=== PATIENT | female | born 1980 | race Caucasian/White ===

== ENCOUNTER 2021-07-12 03:03 | Inpatient (IN) ==
[2021-07-12] MEDS ORDERED: Isovue-370 500 ML BOTTLE IVP ONE (03:21)
[2021-07-12 03:49] LABS: Basophils % 0.4 %; Eosinophils # 0.2 K/mcL (0.0-0.6); Eosinophils % 2.3 %; Hematocrit 39.5 % (35.3-44.9); Hemoglobin 13.7 g/dL (11.5-15.4); Immature Granulocytes % 0.3 % (0-4); Lymphocytes # 2.9 K/mcL (0.6-4.6); Lymphocytes % 37.4 %; Mean Corpuscular HGB Conc 34.7 g/dL (31.6-35.5); Mean Corpuscular Hemoglobin 35.5 pg (28.0-33.3); Mean Corpuscular Volume 102.3 fL (83.0-100.0); Mean Platelet Volume 10.2 fL (9.4-12.4); Monocytes # 0.3 K/mcL (0.0-1.3); Monocytes % 4.3 %; Neutrophils # 4.3 K/mcL (1.6-8.9); Platelet Count 233 K/mcL (140-400); Red Blood Count 3.86 M/mcL (3.82-4.97); Red Cell Distribution Width 12.6 % (11.5-14.5); Segmented Neutrophils % 55.3 %; White Blood Count 7.7 K/mcL (4.3-11.1)
[2021-07-12 04:10] LABS: Albumin 4.4 g/dL (3.5-5.7); Albumin/Globulin Ratio 1.5 (1.1-2.2); Bilirubin,Direct 0.1 mg/dL (0.0-0.2); Bilirubin,Indirect 0.8 mg/dL (0.0-1.0); Bilirubin,Total 0.9 mg/dL (0.3-1.0); Globulin 2.9 g/dL (2.4-3.5); Total Protein 7.3 g/dL (6.4-8.9)
[2021-07-12 04:11] LABS: BUN/Creatinine Ratio 9 (6-26); Blood Urea Nitrogen 9 mg/dL (6-20); Calcium 8.8 mg/dL (8.6-10.3); Carbon Dioxide 19 mEq/L (23-29); Chloride 105 mEq/L (98-107); Glucose 120 mg/dL (70-105); Osmolality,Calculated 282 (280-300); Potassium 3.3 mEq/L (3.5-5.1); Sodium 136 mEq/L (136-145); Troponin I 0.03 ng/mL (< 0.04); eGFR For African Americans > 60 (> 60); eGFR For Non-African Americans > 60 (> 60)
[2021-07-12] MEDS ORDERED: Aspirin 81 MG TAB.CHEW PO ONE (04:58)
[2021-07-12] MEDS ORDERED: Nitroglycerin 0.4 MG TAB.SUBL SL ONE (04:59)
[2021-07-12] MEDS ORDERED: Ondansetron 4 MG/2 ML VIAL IVP ONE (05:06)
[2021-07-12] MEDS ORDERED: *HR* Ticagrelor 90 MG TABLET PO ONE (05:10)
[2021-07-12] MEDS ORDERED: *HR* Heparin 5,000 UNIT/ML VIAL IVP ONE (05:10)
[2021-07-12] MEDS ORDERED: *HR* Heparin 5,000 UNIT/ML VIAL IVP PRN ×2 (05:10)
[2021-07-12] MEDS ORDERED: Heparin 25,000UNIT/250ML 1/2NS 25,000 UNIT/250 ML IV.SOLN IVC SCH (05:15)
[2021-07-12] MEDS ORDERED: *HR* FentaNYL (PF) 100 MCG/2 ML VIAL IVP ONE (05:26)
[2021-07-12] MEDS ORDERED: 0.9 % Sodium Chloride 2,000 ML ONE (05:39)
[2021-07-12] MEDS ORDERED: Nitroglycerin 1,000 MCG/5 ML VIAL IV ONE ×2 (05:39→06:37)
[2021-07-12] MEDS ORDERED: *HR* Heparin 10,000 UNIT/10 ML VIAL ONE (05:39)
[2021-07-12] MEDS ORDERED: Heparin 1,000 UNITS/500 mL 500 ML ONE ×2 (05:39→07:14)
[2021-07-12] MEDS ORDERED: ISOVUE-370 200 ML INFUS..BTL ONE ×2 (05:39→06:31)
[2021-07-12] MEDS ORDERED: *HR* Midazolam HCl 2 MG/2 ML VIAL ONE ×2 (05:47→07:16)
[2021-07-12] MEDS ORDERED: *HR* FentaNYL (PF) 100 MCG/2 ML VIAL ONE (05:48)
[2021-07-12] MEDS ORDERED: 0.9 % Sodium Chloride 1,000 ML ONE ×3 (05:50→13:03)
[2021-07-12 05:57] LABS: Prothrombin Time 11.9 Seconds (9.4-12.1)
[2021-07-12 05:58] LABS: Heparin anti-factor XA UFH < 0.04 IU/mL (0.30-0.70)
[2021-07-12 06:00] LABS: Activated Partial Thrombo Time 27.7 Seconds (26.0-36.0)
[2021-07-12 06:04] LABS: Basophils % 0.2 %; Eosinophils # 0.1 K/mcL (0.0-0.6); Eosinophils % 0.8 %; Hematocrit 36.2 % (35.3-44.9); Hemoglobin 12.4 g/dL (11.5-15.4); Immature Granulocytes % 0.4 % (0-4); Lymphocytes # 1.7 K/mcL (0.6-4.6); Lymphocytes % 20.8 %; Mean Corpuscular HGB Conc 34.3 g/dL (31.6-35.5); Mean Corpuscular Hemoglobin 35.3 pg (28.0-33.3); Mean Corpuscular Volume 103.1 fL (83.0-100.0); Mean Platelet Volume 10.2 fL (9.4-12.4); Monocytes # 0.4 K/mcL (0.0-1.3); Monocytes % 4.2 %; Neutrophils # 6.1 K/mcL (1.6-8.9); Platelet Count 201 K/mcL (140-400); Red Blood Count 3.51 M/mcL (3.82-4.97); Red Cell Distribution Width 12.5 % (11.5-14.5); Segmented Neutrophils % 73.6 %; White Blood Count 8.3 K/mcL (4.3-11.1)
[2021-07-12] MEDS ORDERED: *HR* Atropine Sulfate 1 MG/10 ML SYRINGE ONE (06:15)
[2021-07-12] MEDS ORDERED: Ondansetron 4 MG/2 ML VIAL ONE ×2 (06:49→08:00)
[2021-07-12 06:54] LABS: BUN/Creatinine Ratio 11 (6-26); Blood Urea Nitrogen 9 mg/dL (6-20); Calcium 8.6 mg/dL (8.6-10.3); Carbon Dioxide 20 mEq/L (23-29); Chloride 103 mEq/L (98-107); Glucose 128 mg/dL (70-105); Osmolality,Calculated 280 (280-300); Potassium 3.6 mEq/L (3.5-5.1); Sodium 135 mEq/L (136-145); eGFR For African Americans > 60 (> 60); eGFR For Non-African Americans > 60 (> 60)
[2021-07-12] MEDS ORDERED: Perflutren Lipid Microsphere 1.3 ML in 0.9 % Sodium Chloride 8.7 ML IVP PRN (07:45)
[2021-07-12] MEDS ORDERED: Acetaminophen 325 MG TABLET PO ONE (09:15)
[2021-07-12 10:29] LABS: Adenovirus Not Detected (Not Detect); Bordetella Pertussis Not Detected (Not Detect); Chlamydophila pneumoniae Not Detected (Not Detect); Coronavirus 229E Not Detected (Not Detect); Coronavirus HKU1 Not Detected (Not Detect); Coronavirus NL63 Not Detected (Not Detect); Coronavirus OC43 Not Detected (Not Detect); Human Metapneumovirus Not Detected (Not Detect); Human Rhinovirus/Enterovirus Not Detected (Not Detect); Influenza A Subtype 2009 H1 Not Detected (Not Detect); Influenza B Not Detected (Not Detect); Mycoplasma pneumoniae Not Detected (Not Detect); Parainfluenza Virus 1 Not Detected (Not Detect); Parainfluenza Virus 2 Not Detected (Not Detect); Parainfluenza Virus 3 Not Detected (Not Detect); Parainfluenza Virus 4 Not Detected (Not Detect); Respiratory Syncytial Virus Not Detected (Not Detect); SARS-CoV-2 Not Detected (Not Detect)
[2021-07-12] MEDS: 0.9 % Sodium Chloride 1,000 ML IVC SCH ×2 (16:31→18:12)
[2021-07-12] MEDS: *HR* Heparin 5,000 UNIT/ML VIAL SQ SCH (17:40)
[2021-07-12] MEDS ORDERED: *HR* Metoprolol 5 MG/5 ML VIAL IVP ONE (18:03)
[2021-07-12] MEDS ORDERED: Morphine Sulfate 2 MG/ML SYRINGE IVP PRN (18:07)
[2021-07-12] MEDS: *HR* Ticagrelor 90 MG TABLET PO SCH (20:13)
[2021-07-13] MEDS: Acetaminophen 325 MG TABLET PO PRN ×2 (01:27→07:32)
[2021-07-13] MEDS: 0.9 % Sodium Chloride 1,000 ML IVC SCH (02:38)
[2021-07-13 03:10] LABS: Basophils % 0.1 %; Eosinophils # 0.1 K/mcL (0.0-0.6); Hematocrit 33.5 % (35.3-44.9); Hemoglobin 11.2 g/dL (11.5-15.4); Immature Granulocytes % 0.3 % (0-4); Lymphocytes # 1.7 K/mcL (0.6-4.6); Lymphocytes % 24.9 %; Mean Corpuscular HGB Conc 33.4 g/dL (31.6-35.5); Mean Corpuscular Hemoglobin 35.3 pg (28.0-33.3); Mean Corpuscular Volume 105.7 fL (83.0-100.0); Mean Platelet Volume 10.2 fL (9.4-12.4); Monocytes # 0.3 K/mcL (0.0-1.3); Monocytes % 4.6 %; Neutrophils # 4.8 K/mcL (1.6-8.9); Platelet Count 177 K/mcL (140-400); Red Blood Count 3.17 M/mcL (3.82-4.97); Red Cell Distribution Width 12.7 % (11.5-14.5); Segmented Neutrophils % 69.1 %; White Blood Count 6.9 K/mcL (4.3-11.1)
[2021-07-13 03:37] LABS: BUN/Creatinine Ratio 6 (6-26); Blood Urea Nitrogen 5 mg/dL (6-20); Calcium 8.2 mg/dL (8.6-10.3); Carbon Dioxide 19 mEq/L (23-29); Chloride 110 mEq/L (98-107); Glucose 114 mg/dL (70-105); Osmolality,Calculated 282 (280-300); Potassium 3.5 mEq/L (3.5-5.1); Sodium 137 mEq/L (136-145); eGFR For African Americans > 60 (> 60); eGFR For Non-African Americans > 60 (> 60)
[2021-07-13 03:45] LABS: Troponin I 7.56 ng/mL (< 0.04)
[2021-07-13] MEDS: *HR* Heparin 5,000 UNIT/ML VIAL SQ SCH ×2 (05:01→17:21)
[2021-07-13] MEDS: *HR* Ticagrelor 90 MG TABLET PO SCH ×2 (07:30→19:47)
[2021-07-13] MEDS: Aspirin 81 MG TAB.CHEW PO SCH (07:30)
[2021-07-13] MEDS ORDERED: lisinopriL 5 MG TABLET PO SCH (09:00)
[2021-07-13 14:08] LABS: Troponin I 0.58 ng/mL (< 0.04)
[2021-07-13] MEDS ORDERED: D5% in 0.45% NACL 1,000 ML IVC SCH (20:15)
[2021-07-13] MEDS ORDERED: Morphine Sulfate 2 MG/ML SYRINGE IVP ONE ×2 (20:19→21:25)
[2021-07-13] MEDS ORDERED: Nitroglycerin 0.4 MG TAB.SUBL SL ONE (20:22)
[2021-07-13] MEDS: Nitroglycerin 0.4 MG TAB.SUBL SL SCH ×3 (20:25→22:47)
[2021-07-13] MEDS ORDERED: Mag Hydrox/Al Hydrox/Simeth 30 ML UDC PO ONE (22:05)
[2021-07-13] MEDS: Pantoprazole 40 MG VIAL IVP SCH (22:38)
[2021-07-14] MEDS: Pantoprazole 40 MG VIAL IVP SCH (05:20)
[2021-07-14] MEDS: *HR* Heparin 5,000 UNIT/ML VIAL SQ SCH (05:44)
[2021-07-14 06:57] VITALS: BP 91/64; PULSE 83; TEMP 98.1; O2SAT 94
[2021-07-14] MEDS: Aspirin 81 MG TAB.CHEW PO SCH (07:43)
[2021-07-14] MEDS: *HR* Ticagrelor 90 MG TABLET PO SCH (07:43)
[2021-07-14] MEDS ORDERED: GI Cocktail 40 ML EACH PO ONE (09:39)
[2021-07-14] MEDS ORDERED: Sucralfate 1 GM TABLET PO SCH (11:30)
[2021-07-14 15:22] LABS: Chol/HDL Ratio 6.7 (0-4.9)
[2021-07-15] MEDS ORDERED: Metoprolol XL (24 HR) Succ 25 MG TAB.ER.24H PO SCH (09:00)
== END 2021-07-14 12:31 | disposition home or self-care (01) | DRG 247 ==
LOC: EMEROOARM 03:03 → ICNU 06:08 → 2NNU 15:04
PROVIDERS: ADMIT Internal Medicine Cardiovascular Disease; ATTEND Internal Medicine Cardiovascular Disease